=== PATIENT | female | born 1960 | race Caucasian/White ===

== ENCOUNTER 2017-01-24 21:46 | Inpatient (IN) ==
[2017-01-24] MEDS ORDERED: 0.9 % Sodium Chloride 1,000 ML IVC ONE (22:20)
[2017-01-24 22:53] LABS: Basophils # 0.1 K/mcL (0.0-0.2); Basophils % 1.2 %; Eosinophils # 0.6 K/mcL (0.0-0.6); Eosinophils % 9.4 %; Hematocrit 39.5 % (35.3-44.9); Hemoglobin 12.6 g/dL (11.5-15.4); Immature Granulocytes % 0.2 % (0-4); Lymphocytes # 1.2 K/mcL (0.6-4.6); Lymphocytes % 19.8 %; Mean Corpuscular HGB Conc 31.9 g/dL (31.6-35.5); Mean Corpuscular Hemoglobin 26.8 pg (28.0-33.3); Mean Platelet Volume 9.7 fL (9.4-12.4); Monocytes # 0.7 K/mcL (0.0-1.3); Monocytes % 11.2 %; Neutrophils # 3.5 K/mcL (1.6-8.9); Platelet Count 321 K/mcL (140-400); Red Cell Distribution Width 12.9 % (11.5-14.5); Segmented Neutrophils % 58.2 %
[2017-01-24 22:58] LABS: INR 1.1
[2017-01-24 23:05] LABS: BUN/Creatinine Ratio 8 (6-26); Blood Urea Nitrogen 7 mg/dL (7-20); Calcium 8.8 mg/dL (8.6-10.8); Carbon Dioxide 18 mEq/L (19-29); Chloride 107 mEq/L (98-109); Glucose 108 mg/dL (70-99); Magnesium 2.1 mg/dL (1.6-2.6); Osmolality,Calculated 279 (280-300); Phosphorous 3.5 mg/dL (2.3-4.7); Potassium 3.3 mEq/L (3.5-4.5); Sodium 135 mEq/L (136-145); eGFR For African Americans > 60 (> 60); eGFR For Non-African Americans > 60 (> 60)
--- NOTE | 2017-01-24 23:09 | Emergency Department Note ---
START Narrative - START START: I examined this patient and my medical decision-making was reviewed with the Resident Physician. I agree with the documented findings, disposition and treatment plan as described except to the extent set forth below. 56 female presents emergency room for weakness. Patient states her lower legs gave out on her tonight. She feels extremely weak. Unable to ambulate. She also had a tremor. She denies any new numbness in her face or leg. No speech problems. No fevers or chills. No recent medication. No nausea vomiting diarrhea constipation. We will workup for weakness with a CT of the brain and screening lab work. Patient on my exam was able to lift both legs off the bed. She does have a resting tremor and then one that is worse with activity.
[2017-01-24 23:42] LABS: Bilirubin,Urine Negative (Negative); Blood,Urine Negative (Negative); Clarity,Urine Clear (Clear); Color,Urine Yellow (Yellow); Glucose,Urine (UA) Normal (Normal); Ketones,Urine Negative (Negative); Leukocyte Esterase,Urine Moderate (Negative); Nitrite,Urine Negative (Negative); PH,Urine 6.5 pH Units (5.0-8.0); Protein,Urine Negative (Neg-Trace); Specific Gravity,Urine 1.012 (1.010-1.025); Urobilinogen,Urine Normal (Normal)
[2017-01-24 23:48] LABS: Thyroid Stimulating Hormone 0.009 mcIU/mL (0.350-4.840)
[2017-01-24 23:52] LABS: Bacteria,Urine Few per hpf (None-Few); RBC,Urine 0-3 per hpf (0-3); Squamous Epithelial Cell,Urine Few per lpf (None-Few); WBC,Urine 0-3 per hpf (0-3)
--- NOTE | 2017-01-25 00:16 | Emergency Department Note ---
Disposition Clinical Impression: Hyperthyroidism, Weakness, Tremor Disposition: Admitted As Inpatient Condition: Good General Adult HPI - General Chief complaint: ED Weakness Stated complaint: BLE weakness Time Seen by Provider: 01/24/17 21:50 Source: EMS Mode of arrival: ambulatory Limitations: no limitations Nursing Notes Reviewed: Yes Vital Signs Reviewed: Yes - History of Present Illness HPI Narrative: Patient presents for evaluation of bilateral lower extremity weakness. Patient states she tried to get up off the couch and her legs gave out. Patient tried to get up and also had leg weakness that kept her from being unable to get up. The second time the patient did hit her head causing a small hematoma to the right frontal area. Patient arrives by EMS. Patient has decreased strength in the lower extremities. Patient has difficulty with cerebellar testing. Patient has a tremor to both upper and lower extremities. Patient is tachycardic. Patient does take thyroid medication. Patient has no history of liver disease. No history of cancer. Patient has not had any recent infectious type symptoms including cough or urinary symptoms. Patient will undergo metabolic evaluation as well as infectious workup. Review of systems; positive for hallucinations of the last 2 weeks. Visual nature. Pain Scale: 0 - Related Data Home Medications Medication Instructions Recorded Confirmed ALPRAZolam [Xanax 1 MG Tablet] 2 mg PO TID 03/19/15 10/10/15 Duloxetine HCl [Cymbalta] 60 mg PO BID 03/19/15 10/10/15 Gabapentin [Neurontin] 600 mg PO TID 03/19/15 10/10/15 Liothyronine Sodium [Cytomel] 25 mg PO DAILY 03/19/15 10/10/15 Topiramate [Trokendi Xr] 100 mg PO BID 03/19/15 10/10/15 BuPROPion SR (12 HR) [Wellbutrin 150 mg PO TID 09/29/15 10/10/15 SR] lamoTRIgine [Lamictal] 200 mg PO QID 09/29/15 10/10/15 Penicillin VK [Pencillin VK] 500 mg PO QID 10/10/15 10/10/15 Previous Rx's Medication Instructions Recorded Aspirin Enteric Coated [Aspirin EC] 325 mg PO DAILY #30 tablet. 12/16/16 Allergies Allergy/AdvReac Type Severity Reaction Status Date / Time No Known Allergies Allergy Verified 01/24/17 21:47 Review of Systems: CONSTITUTIONAL: No weight loss, fever, chills, weakness or fatigue. HEENT: Eyes: No visual changes. Ears, Nose, Throat: No hearing loss, difficulty talking or unable to swallow. SKIN: No rash or itching. CARDIOVASCULAR: No chest pain, chest pressure or chest discomfort. No palpitations or edema. RESPIRATORY: No shortness of breath, cough or sputum. GASTROINTESTINAL: No anorexia, nausea, vomiting or diarrhea. No abdominal pain or blood. GENITOURINARY: No burning on urination or hematuria. NEUROLOGICAL: tremor; haullucination; No headache, dizziness, syncope, paralysis , ataxia, numbness or tingling in the extremities. No change in bowel or bladder control. MUSCULOSKELETAL: LE weakness. No muscle pain, back pain, joint pain or stiffness. Past Medical History - Past Medical History Medical history: Reports: cancer, migraine, thyroid disease, TIA Surgical history: Reports: appendectomy Psychiatric history: Reports: anxiety, bipolar, depression, panic disorder [employer] history: Reports: cervical cancer, bilateral tubal ligation - Social History Smoking Status: Former smoker Smokeless Tobacco Status: No Alcohol use: Reports: none Drug use: Reports: none Physical Exam General appearance: NAD, conversant Eyes: anicteric sclerae, moist conjunctivae; anisocoria but reactive b/l to light. HENT: Atraumatic; oropharynx clear with moist mucous membranes and no mucosal ulcerations Neck: Normal inspection; Trachea midline; FROM, supple Lungs: CTA, with normal respiratory effort and no intercostal retractions CV: RRR, no MRGs Abdomen: Soft, non-tender; no rebound or gaurding Extremities: No peripheral edema or extremity lymphadenopathy; DP pulse +1 bilaterally Skin: Normal temperature; no rash, ulcers or lesions Psych: Appropriate mood and affect Neuro: alert and oriented to person, place and time; 4/5 strength to lower extremities; sensation intact; tremor of upper and lower extremities. - General General appearance: alert Course - Reevaluation(s) Reevaluation #1: Patient has significantly low TSH. Concern for hyperthyroidism. Patient is not in thyroid storm. Will admit the patient to the hospital for further workup and evaluation. - Consultations Consultation #1: Dr. Cortes accepts for further evaluation and monitoring. Vital Signs Temperature 98.2 F 01/24/17 21:48 Pulse Rate 109 01/24/17 21:48 Respiratory Rate 16 01/24/17 21:48 Blood Pressure 138/101 01/24/17 21:48 O2 Sat by Pulse Oximetry 99 01/24/17 21:48 Temperature 98.2 F 01/24/17 21:48 Pulse Rate 92 01/24/17 23:31 Respiratory Rate 18 01/24/17 23:31 Blood Pressure 120/77 01/24/17 23:31 O2 Sat by Pulse Oximetry 97 01/24/17 23:31 Oxygen Delivery Oxygen Delivery Room Air Medical Decision Making - MDM Narrative Medical decision making narrative: Patient presented tachycardic with generalized tremors muscle weakness and hallucinations. Patient underwent a workup for metabolic and infectious etiologies. Patient's workup shows a low TSH. Patient will be admitted for further workup and evaluation. Vitals are now stable. The patient is not in thyroid storm. No other intervention in the emergency department besides fluids. - Lab Data Result diagrams: 01/24/17 22:46 01/24/17 22:46 Lab Results 01/24/17 01/24/17 01/24/17 Range/Units 22:00 22:46 22:46 WBC 6.1 (4.3-11.1) K/mcL RBC 4.70 (3.82-4.97) M/mcL Hgb 12.6 (11.5-15.4) g/dL Hct 39.5 (35.3-44.9) % MCV 84.0 (83.0-100.0) fL MCH 26.8 L (28.0-33.3) pg MCHC 31.9 (31.6-35.5) g/dL RDW 12.9 (11.5-14.5) % Plt Count 321 (140-400) K/mcL MPV 9.7 (9.4-12.4) fL Immature Gran % 0.2 (0-4) % Seg Neutrophils % 58.2 % Lymphocytes % 19.8 % Monocytes % 11.2 % Eosinophils % 9.4 % Basophils % 1.2 % Neutrophils # 3.5 (1.6-8.9) K/mcL Lymphocytes # 1.2 (0.6-4.6) K/mcL Monocytes # 0.7 (0.0-1.3) K/mcL Eosinophils # 0.6 (0.0-0.6) K/mcL Basophils # 0.1 (0.0-0.2) K/mcL PT 12.0 (9.4-12.1) Seconds INR 1.1 Sodium (136-145) mEq/L Potassium (3.5-4.5) mEq/L Chloride (98-109) mEq/L Carbon Dioxide (19-29) mEq/L BUN (7-20) mg/dL Creatinine (0.57-1.11) mg/dL Est GFR ( Amer) (> 60) Est GFR (Non-Af Amer) (> 60) BUN/Creatinine Ratio (6-26) Glucose (70-99) mg/dL POC Glucose 97 H (58-89) Calculated Osmolality (280-300) Calcium (8.6-10.8) mg/dL Phosphorus (2.3-4.7) mg/dL Magnesium (1.6-2.6) mg/dL Ammonia (18-72) mcmol/L Troponin I (0-0.03) ng/mL TSH (0.350-4.840) mcIU/mL Urine Color (Yellow) Urine Clarity (Clear) Urine pH (5.0-8.0) pH Units Ur Specific Holden (1.010-1.025) Urine Protein (Neg-Trace) mg/dL Urine Glucose (UA) (Normal) mg/dL Urine Ketones (Negative) mg/dL Urine Blood (Negative) Urine Nitrite (Negative) Urine Bilirubin (Negative) Urine Urobilinogen (Normal) mg/dL Ur Leukocyte Esterase (Negative) Urine Microscopic RBC (0-3) per hpf Urine Microscopic WBC (0-3) per hpf Ur Squamous Epith Cells (None-Few) per lpf Urine Bacteria (None-Few) per hpf Ur Culture Indicated? (NO) 01/24/17 01/24/17 01/24/17 Range/Units 22:46 22:46 22:46 WBC (4.3-11.1) K/mcL RBC (3.82-4.97) M/mcL Hgb (11.5-15.4) g/dL Hct (35.3-44.9) % MCV (83.0-100.0) fL MCH (28.0-33.3) pg MCHC (31.6-35.5) g/dL RDW (11.5-14.5) % Plt Count (140-400) K/mcL MPV (9.4-12.4) fL Immature Gran % (0-4) % Seg Neutrophils % % Lymphocytes % % Monocytes % % Eosinophils % % Basophils % % Neutrophils # (1.6-8.9) K/mcL Lymphocytes # (0.6-4.6) K/mcL Monocytes # (0.0-1.3) K/mcL Eosinophils # (0.0-0.6) K/mcL Basophils # (0.0-0.2) K/mcL PT (9.4-12.1) Seconds INR Sodium 135 L (136-145) mEq/L Potassium 3.3 L (3.5-4.5) mEq/L Chloride 107 (98-109) mEq/L Carbon Dioxide 18 L (19-29) mEq/L BUN 7 (7-20) mg/dL Creatinine 0.88 (0.57-1.11) mg/dL Est GFR ( Amer) > 60 (> 60) Est GFR (Non-Af Amer) > 60 (> 60) BUN/Creatinine Ratio 8 (6-26) Glucose 108 H (70-99) mg/dL POC Glucose (58-89) Calculated Osmolality 279 L (280-300) Calcium 8.8 (8.6-10.8) mg/dL Phosphorus 3.5 (2.3-4.7) mg/dL Magnesium 2.1 (1.6-2.6) mg/dL Ammonia 31 (18-72) mcmol/L Troponin I 0.00 (0-0.03) ng/mL TSH 0.009 L (0.350-4.840) mcIU/mL Urine Color (Yellow) Urine Clarity (Clear) Urine pH (5.0-8.0) pH Units Ur Specific Holden (1.010-1.025) Urine Protein (Neg-Trace) mg/dL Urine Glucose (UA) (Normal) mg/dL Urine Ketones (Negative) mg/dL Urine Blood (Negative) Urine Nitrite (Negative) Urine Bilirubin (Negative) Urine Urobilinogen (Normal) mg/dL Ur Leukocyte Esterase (Negative) Urine Microscopic RBC (0-3) per hpf Urine Microscopic WBC (0-3) per hpf Ur Squamous Epith Cells (None-Few) per lpf Urine Bacteria (None-Few) per hpf Ur Culture Indicated? (NO) 01/24/17 Range/Units 23:35 WBC (4.3-11.1) K/mcL RBC (3.82-4.97) M/mcL Hgb (11.5-15.4) g/dL Hct (35.3-44.9) % MCV (83.0-100.0) fL MCH (28.0-33.3) pg MCHC (31.6-35.5) g/dL RDW (11.5-14.5) % Plt Count (140-400) K/mcL MPV (9.4-12.4) fL Immature Gran % (0-4) % Seg Neutrophils % % Lymphocytes % % Monocytes % % Eosinophils % % Basophils % % Neutrophils # (1.6-8.9) K/mcL Lymphocytes # (0.6-4.6) K/mcL Monocytes # (0.0-1.3) K/mcL Eosinophils # (0.0-0.6) K/mcL Basophils # (0.0-0.2) K/mcL PT (9.4-12.1) Seconds INR Sodium (136-145) mEq/L Potassium (3.5-4.5) mEq/L Chloride (98-109) mEq/L Carbon Dioxide (19-29) mEq/L BUN (7-20) mg/dL Creatinine (0.57-1.11) mg/dL Est GFR ( Amer) (> 60) Est GFR (Non-Af Amer) (> 60) BUN/Creatinine Ratio (6-26) Glucose (70-99) mg/dL POC Glucose (58-89) Calculated Osmolality (280-300) Calcium (8.6-10.8) mg/dL Phosphorus (2.3-4.7) mg/dL Magnesium (1.6-2.6) mg/dL Ammonia (18-72) mcmol/L Troponin I (0-0.03) ng/mL TSH (0.350-4.840) mcIU/mL Urine Color Yellow (Yellow) Urine Clarity Clear (Clear) Urine pH 6.5 (5.0-8.0) pH Units Ur Specific Holden 1.012 (1.010-1.025) Urine Protein Negative (Neg-Trace) mg/dL Urine Glucose (UA) Normal (Normal) mg/dL Urine Ketones Negative (Negative) mg/dL Urine Blood Negative (Negative) Urine Nitrite Negative (Negative) Urine Bilirubin Negative (Negative) Urine Urobilinogen Normal (Normal) mg/dL Ur Leukocyte Esterase Moderate H (Negative) Urine Microscopic RBC 0-3 (0-3) per hpf Urine Microscopic WBC 0-3 (0-3) per hpf Ur Squamous Epith Cells Few (None-Few) per lpf Urine Bacteria Few (None-Few) per hpf Ur Culture Indicated? YES A (NO)
[2017-01-25] MEDS ORDERED: Naloxone 0.4 MG/ML INJ IVP PRN (00:47)
--- NOTE | 2017-01-25 00:55 | Internal Med History&Physical ---
Date of Encounter: 01/25/17 Time of Encounter: 00:52 Assessment and Plan (1) Weakness of both legs Current visit: Yes Status: Acute head ct wnl check MRI brain w/wo contrast PT/OT (2) Abnormal thyroid blood test Current visit: Yes Status: Acute pending TFT, may need to hold cytomel (3) Migraine Current visit: Yes Status: Acute hx of migraine. Doubt presentation related to complicated migraine Qualifiers: Status migrainosus presence: without status migrainosus Qualified Code(s): G43.909 - Migraine, unspecified, not intractable, without status migrainosus Internal Medicine - H&P: HPI Chief complaint: b/l LE weakness History of present illness: Ms. Flowres is a 56 year old female who presents with acute b/l LE weakness. She has a hx of hypothyroid on cytomel. She lives with dtr and grandkids at home. Yesterday, she felt the early beginnings of onset of proximal LE weakness when she was lifting her grandkid. Today, she had progressive weakness most notable at 8 pm this evening - she attempted to stand up from the couch when she felt both of her legs giving out, leading to fall to the floor and mild head trauma. She denies any sensory deficits or back pain or prior trauma. Review noted 2 weeks hx of intermittent hallucinations. Chart review noted probably hx of pseudoseizures. Patient also report hx of migraine EKG reviewed by self with rate 102, sinus tachycardia CT/CT head/brain wo con IMPRESSION: No acute intracranial abnormality. XR/XR chest 1V portable IMPRESSION: Negative portable chest. Past Med Surg Social Fam HX - Past Medical History Medical history: cancer, migraine, thyroid disease, TIA Psychiatric history: anxiety, bipolar, depression, panic disorder - Past Surgical History Surgical History: appendectomy - Social History Smoking Status: Former smoker Smokeless Tobacco Status: No Alcohol use: none Drug use: none - Family History Mother Living Status: Still Living Hx Family Cardiac Disorders: No Hx Family Respiratory Disorders: No Hx Family Cancer: Yes (female cancer) Hx Family GI Disorders: No Hx Family Endocrine Disorder: No Hx Family Neuromuscular Disorders: No Hx Family Neurologic Disorders: No Hx Family HEENT Disorders: No Hx Family Autoimmune Disorders: No Father Living Status: Hx Family Cardiac Disorders: Yes (Enlarged heart) Hx Family Respiratory Disorders: Yes (COPD) Hx Family Cancer: No Hx Family GI Disorders: No Hx Family Endocrine Disorder: No Hx Family Neuromuscular Disorders: No Hx Family Neurologic Disorders: No Hx Family HEENT Disorders: No Hx Family Autoimmune Disorders: No Internal Medicine - H&P: Meds ALPRAZolam [Xanax 1 MG Tablet] 2 mg PO TID 03/19/15 [History] Duloxetine HCl [Cymbalta] 60 mg PO BID 03/19/15 [History] Gabapentin [Neurontin] 600 mg PO TID 03/19/15 [History] Liothyronine Sodium [Cytomel] 25 mg PO DAILY 03/19/15 [History] Topiramate [Trokendi Xr] 100 mg PO BID 03/19/15 [History] BuPROPion SR (12 HR) [Wellbutrin SR] 150 mg PO TID 09/29/15 [History] lamoTRIgine [Lamictal] 200 mg PO QID 09/29/15 [History] Penicillin VK [Pencillin VK] 500 mg PO QID 10/10/15 [History] Aspirin Enteric Coated [Aspirin EC] 325 mg PO DAILY #30 tablet. 12/16/16 [Rx] 3 Allergy/AdvReac Type Severity Reaction Status Date / Time No Known Allergies Allergy Verified 01/24/17 21:47 All Systems PM: A 10-system review of systems was performed and is negative for pertinent findings except as documented above in the HPI. Review of systems: ROS 14 point review of systems reviewed as best as possible given presentation. Pertinent positive or negative as per HPI or otherwise reviewed as negative - Constitutional Vitals: Temp Pulse Resp BP Pulse Ox 98.2 F 92 18 120/77 97 01/24/17 21:48 01/24/17 23:31 01/24/17 23:31 01/24/17 23:31 01/24/17 23:31 Exam: General - AAO x 3 Psych - Appropriate affect/speech. No agitation Eyes - GATO. Eye lids intact. No scleral icterus Neuro - peripheral LE power 4/5 on right, 4-/5 on left. No UE deficits or overt CN deficits. Some poor coordination Heart - Sinus. RRR. S1 and S2 present. No added HS/murmurs appreciated. No elevated JVD appreciated. Lung - Adequate air entry b/l, No crackles/wheezes appreciated GI - Soft, non-tender. No hepatosplenomegaly/ascites. BS+ - No CVA/suprapubic tenderness or palpable bladder distension Internal Med - H&P Results - Labs CBC & Chem 7: 01/24/17 22:46 01/24/17 22:46
[2017-01-25 01:20] LABS: Triiodothyronine (T3) Free 5.45 pg/mL (1.71-3.71); Triiodothyronine (T3) Total 3.09 ng/mL (0.58-1.59)
[2017-01-25] MEDS: 0.9 % Sodium Chloride w KCl 20 MEQ/1,000 ML MLS IVC SCH ×2 (03:20→15:44)
[2017-01-25] MEDS ORDERED: ALPRAZolam 1 MG TABLET PO ONE (03:34)
[2017-01-25 05:58] LABS: Alanine Aminotransferase 11 Units/L (0-55); Albumin 2.7 g/dL (3.5-5.0); Albumin/Globulin Ratio 0.8 (1.1-2.2); Alkaline Phosphatase 40 Units/L (38-126); Aspartate Amino Transferase 16 Units/L (5-34); BUN/Creatinine Ratio 8 (6-26); Bilirubin,Total 0.2 mg/dL (0.2-1.2); Blood Urea Nitrogen 7 mg/dL (7-20); Calcium 8.1 mg/dL (8.6-10.8); Carbon Dioxide 18 mEq/L (19-29); Chloride 112 mEq/L (98-109); Globulin 3.3 g/dL (2.4-3.5); Glucose 106 mg/dL (70-99); Osmolality,Calculated 286 (280-300); Potassium 3.2 mEq/L (3.5-4.5); Sodium 139 mEq/L (136-145); eGFR For African Americans > 60 (> 60); eGFR For Non-African Americans > 60 (> 60)
[2017-01-25] MEDS ORDERED: lamoTRIgine 100 MG TABLET PO SCH (09:00)
[2017-01-25] MEDS: BuPROPion SR (12 HR) 150 MG TABLET PO SCH ×2 (09:32→21:00)
[2017-01-25] MEDS: Topiramate 100 MG TABLET PO SCH ×2 (09:32→21:00)
[2017-01-25] MEDS: Gabapentin 300 MG CAPSULE PO SCH ×3 (09:32→21:00)
[2017-01-25] MEDS: ALPRAZolam 1 MG TABLET PO SCH ×3 (09:32→21:00)
[2017-01-25] MEDS: Aspirin Enteric Coated 325 MG Tablet PO SCH (09:36)
--- NOTE | 2017-01-25 16:37 | Internal Med Progress Note ---
Date of Encounter: 01/25/17 Time of Encounter: 16:35 - Assessment and plan (1) Weakness of both legs Current Visit: Yes Status: Acute Assessment and plan: Sudden onset Unclear etiology MRI of Brain - no acute infractions PT / OT eval - recommended in pt rehab cont frequent neuro checks check B12, Folic acid levels Neuro consulted (2) Abnormal thyroid blood test Current Visit: Yes Status: Acute Assessment and plan: Reviewed thyroid functions tests.. low TSH, Low T4, high free T3 and total T3 concern for central hypothyroidism and excessive medication with Cytomel so cut back on Cytomel dose also will check with PCP about her thyroid status ordered ACTH cortisol stimulation test check FSH, LH to confirm central pituitary / hypothalamus problem (3) Anxiety Current Visit: No Status: Acute (4) Migraine Current Visit: Yes Status: Acute Assessment and plan: resumed home meds Qualifiers: Status migrainosus presence: without status migrainosus Qualified Code(s): G43.909 - Migraine, unspecified, not intractable, without status migrainosus - Subjective Interval history: Ms. Flowers is a 56 year old female hx of hypothyroid on cytomel, fibromyalgia, bipolar, migraine who presented to ER with acute b/l LE weakness. 2 days ago, she felt the early beginnings of onset of proximal LE weakness when she was lifting her grand kid. y/d, she had progressive weakness most notable at 8 pm - she attempted to stand up from the couch when she felt both of her legs giving out, leading to fall to the floor and mild head trauma. She denies any sensory deficits or back pain or prior trauma. She also denied any fecal or urinary incontinence - Constitutional Vitals: Temp Pulse Resp BP Pulse Ox 97.5 F L 87 17 95/64 97 01/25/17 15:34 01/25/17 15:34 01/25/17 15:34 01/25/17 15:34 01/25/17 15:34 General appearance: Present: A&O X 3, pleasant - Head Head exam: Present: atraumatic, normal inspection - Neck Neck exam general surgery: Present: normal inspection, supple. Absent: thyromegaly - Respiratory Respiratory exam: Present: CTAB. Absent: accessory muscle use, rales, rhonchi, wheezes - Cardiovascular Cardiovascular exam: Present: RRR, +S1, +S2. Absent: diastolic murmur, gallop, rubs, systolic murmur - GI/Abdominal GI/Abdominal exam: Present: normal bowel sounds, soft. Absent: rebound, rigid, tenderness - Extremities Exam Extremities exam: Absent: calf tenderness, pedal edema, tenderness - Back Exam Back exam: Absent: CVA tenderness (L), CVA tenderness (R) - Neurological Exam Neurological exam: Present: alert, oriented X3, strengths equal and symetr throughout (however strength 4/5 in both lower extremeties). Absent: pronater drift, facial droop, speech deficit - Psychiatric Psychiatric exam: Present: normal affect, normal mood - Skin Skin exam: Absent: rash Internal Medicine: Result - Labs CBC & Chem 7: 01/24/17 22:46 01/25/17 05:16 Labs: BMP 01/25/17 05:16 Sodium 139 Potassium 3.2 L Chloride 112 H Carbon Dioxide 18 L BUN 7 Creatinine 0.86 Glucose 106 H Calcium 8.1 L Liver Function 01/25/17 Range/Units 05:16 Total Bilirubin 0.2 (0.2-1.2) mg/dL AST 16 (5-34) Units/L ALT 11 (0-55) Units/L Alkaline Phosphatase 40 (38-126) Units/L Albumin 2.7 L (3.5-5.0) g/dL - ABG Interpretation ABG results: PT/INR, D-dimer PT 12.0 Seconds (9.4-12.1) 01/24/17 22:46 - Impressions Impressions Head MRI 01/25/17 00:50 IMPRESSION: 1. Motion degraded examination. 2. No evidence of acute intracranial abnormality. Specifically, no acute infarction. 3. Foci of periventricular and subcortical white matter signal abnormality are nonspecific, but compatible with mild chronic microvascular ischemic changes. D/ / Tamika Augustine MD / Tamika Augustine MD Interpreting Provider: Tamika Augustine MD Consult Discharge Plan - Plan
[2017-01-25 17:55] LABS: Follicle Stimulating Hormone 84.78 mIU/mL; Luteinizing Hormone 37.1 mIU/mL
[2017-01-26] MEDS ORDERED: Cosyntropin 250 MCG/2 ML VIAL IVP ONE (06:00)
[2017-01-26] MEDS: BuPROPion SR (12 HR) 150 MG TABLET PO SCH ×2 (08:42→20:08)
[2017-01-26] MEDS: ALPRAZolam 1 MG TABLET PO SCH ×3 (08:42→20:07)
[2017-01-26] MEDS: Aspirin Enteric Coated 325 MG Tablet PO SCH (08:42)
[2017-01-26] MEDS: Topiramate 100 MG TABLET PO SCH ×2 (08:42→20:07)
[2017-01-26] MEDS: Gabapentin 300 MG CAPSULE PO SCH ×3 (08:43→20:08)
[2017-01-26] MEDS ORDERED: Cosyntropin 250 MCG/2 ML VIAL IVP PRN (11:05)
--- NOTE | 2017-01-26 11:48 | Neurology - Consult Note ---
Date of Encounter: 01/26/17 Time of Encounter: 11:46 Assessment and Plan (1) Weakness of both legs Current Visit: Yes Status: Acute Unclear etiology. Rapid improvement without specific treatment. But still has residual weakness, although now the examination of leg muscle strength somewhat unreliable, not sure she is using full efforts ( when lifting one leg up, the other does not push down, as would be expected when using full force ). If neurological conditions are to blame, lesion has to be in the spinal cord. Patient has preserved DTRs and no sensory deficits therefore Guillain barre syndrome is not considered. Does have muscle pain with weakness so will check muscle enzymes, including CK, LDH. Will recommend obtaining MRI of thoracic spine without contrast. History of Present Illness Chief complaint: leg weakness HPI: Ms. Flowers is a 56 year old female 56 year old woman with thyroid disease, migraines who developed acute onset of leg weakness. This occurred abut two weeks ago when she woke up in the morning she felt her thighs were sore. Then when she tried to get up she fell trying to get up. She has no arm weakness. She has no sensory deficits. No bladder and bowel dysfunction, no back or neck pain. No speech difficulty, no mental status changes. MRI of brain showed no intracranial abnormality. Was found to have thyroid issues. Patient states that she has been feeling better, about 50-60% improvement since admission. She is able to walk now with some assistance. Past Med Surg Social Fam HX - Past Medical History Medical history: cancer, migraine, thyroid disease, TIA Psychiatric history: anxiety, bipolar, depression, panic disorder - Past Surgical History Surgical History: appendectomy - Social History Smoking Status: Former smoker Smokeless Tobacco Status: No Alcohol use: none Drug use: none - Family History Mother Living Status: Still Living Hx Family Cardiac Disorders: No Hx Family Respiratory Disorders: No Hx Family Cancer: Yes (Uterine Cancer) Hx Family GI Disorders: No Hx Family Endocrine Disorder: No Hx Family Neuromuscular Disorders: No Hx Family Neurologic Disorders: No Hx Family HEENT Disorders: No Hx Family Autoimmune Disorders: No Father Living Status: Hx Family Cardiac Disorders: Yes (Enlarged heart) Hx Family Respiratory Disorders: Yes (COPD) Hx Family Cancer: No Hx Family GI Disorders: No Hx Family Endocrine Disorder: No Hx Family Neuromuscular Disorders: No Hx Family Neurologic Disorders: No Hx Family HEENT Disorders: No Hx Family Autoimmune Disorders: No Medications and Allergies ALPRAZolam [Xanax 1 MG Tablet] 2 mg PO TID PRN 03/19/15 [History] Duloxetine HCl [Cymbalta] 60 mg PO BID 03/19/15 [History] Gabapentin [Neurontin] 600 mg PO QID 03/19/15 [History] Liothyronine Sodium [Cytomel] 50 mcg PO DAILY 03/19/15 [History] Topiramate [Trokendi Xr] 200 mg PO TID 03/19/15 [History] BuPROPion SR (12 HR) [Wellbutrin SR] 200 mg PO BID 09/29/15 [History] lamoTRIgine [Lamictal] 200 mg PO BID 09/29/15 [History] Aspirin [Lo-Dose Aspirin EC] 81 mg PO DAILY 01/25/17 [History] 3 Allergy/AdvReac Type Severity Reaction Status Date / Time No Known Allergies Allergy Verified 01/24/17 21:47 All Systems: A 10-system review of systems was performed and is negative for pertinent findings except as documented above in the HPI. Physical Examination - Vital Signs Vital Signs: Initial Vital Signs Temp Pulse Resp BP Pulse Ox 98.2 F 109 16 138/101 99 01/24/17 21:48 01/24/17 21:48 01/24/17 21:48 01/24/17 21:48 01/24/17 21:48 - Constitutional General appearance: comfortable - Neurologic Sensorimotor examination: intact Detailed motor examination: other (When lifting left leg up, the right leg did not push down. Vise Versa) Motor examination - right side: 4/5: hip flexors, tibialis Anterior, quadriceps , toe extension (EHL), plantarflexion, 5/5: deltoids, biceps, triceps, wrist flexion, wrist extension, spring forger Motor examination - left side: 4/5: hip flexors, quadriceps, tibialis Anterior, toe extension (EHL), plantarflexion, 5/5: deltoids, biceps, triceps, wrist flexion, wrist extension, spring forger Detailed sensory examination: intact Reflexes: Biceps: 3+, Triceps: 3+, Brachioradialis: 3+, Patella: 3+, Achilles: 3 + Mental Status Examination: awake, alert, oriented to person, oriented to place, oriented to time, follows commands appropriately, answers questions appropriately, no agnosia, no aphasia, no aproxia Cranial nerve examination: PERRL, EOMI, visual cabrera intact, corneal reflexes brisk symmetrically, sensory to face intact, mastication intact, no facial asymmetry is present, no dysarthria, hearing is intact symmetrically, soft palate elevates bilaterally upon phonation, gag reflex intact, flexes SCM and trapezius muscles symmetrically with full power, tongue protrudes midline, no atrophy or facial fasiculations present Results - Laboratory Findings CBC and BMP: 01/24/17 22:46 01/25/17 05:16 Abnormal lab findings: Abnormal lab results MCH 26.8 pg (28.0-33.3) L 01/24/17 22:46 Potassium 3.2 mEq/L (3.5-4.5) L 01/25/17 05:16 Chloride 112 mEq/L (98-109) H 01/25/17 05:16 Carbon Dioxide 18 mEq/L (19-29) L 01/25/17 05:16 Glucose 106 mg/dL (70-99) H 01/25/17 05:16 POC Glucose 97 (58-89) H 01/24/17 22:00 Calcium 8.1 mg/dL (8.6-10.8) L 01/25/17 05:16 Albumin 2.7 g/dL (3.5-5.0) L 01/25/17 05:16 Albumin/Globulin Ratio 0.8 (1.1-2.2) L 01/25/17 05:16 Folate 6.3 ng/mL (7.0-31.4) L 01/25/17 16:46 TSH 0.009 mcIU/mL (0.350-4.840) L 01/24/17 22:46 Free T4 < 0.40 ng/dl (0.70-1.48) L 01/24/17 22:46 Thyroxine (T4) < 0.91 mcg/dL (4.87-11.72) L 01/24/17 22:46 Free T3 5.45 pg/mL (1.71-3.71) H 01/24/17 22:46 Total T3 3.09 ng/mL (0.58-1.59) H 01/24/17 22:46 Ur Leukocyte Esterase Moderate (Negative) H 01/24/17 23:35 Ur Culture Indicated? YES (NO) A 01/24/17 23:35 Consult Discharge Plan - Plan Referrals: Mehul Darling MD [Primary Care Provider] -
[2017-01-26 12:32] LABS: Creatine Kinase 40 Units/L (29-168); Lactate Dehydrogenase 157 Units/L (159-327)
--- NOTE | 2017-01-26 13:43 | Internal Med Progress Note ---
Date of Encounter: 01/26/17 Time of Encounter: 13:37 - Assessment and plan (1) Weakness of both legs Current Visit: Yes Status: Acute Assessment and plan: Sudden onset Unclear etiology MRI of Brain - no acute infractions PT / OT eval - recommended in pt rehab cont frequent neuro checks Reviewed her X ray of Lumbar spine - no acute changes Reviewed B12, Folic acid levels-- Slightly lower folic acid levels will start her on floci acid supplements Neuro on board.. recommend MRI of Spine (2) Abnormal thyroid blood test Current Visit: Yes Status: Acute Assessment and plan: Reviewed thyroid functions tests.. 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 Does not look like any central pituitary / hypothalamus problem (3) Anxiety Current Visit: No Status: Acute (4) Migraine Current Visit: Yes Status: Acute Assessment and plan: resumed home meds Qualifiers: Status migrainosus presence: without status migrainosus Qualified Code(s): G43.909 - Migraine, unspecified, not intractable, without status migrainosus - Subjective Interval history: Ms. Flowers is a 56 year old female hx of hypothyroid on cytomel, fibromyalgia, bipolar, migraine who presented to ER with acute b/l LE weakness. 2 days ago, she felt the early beginnings of onset of proximal LE weakness when she was lifting her grand kid. y/d, she had progressive weakness most notable at 8 pm - she attempted to stand up from the couch when she felt both of her legs giving out, leading to fall to the floor and mild head trauma. She denies any sensory deficits or back pain or prior trauma. She also denied any fecal or urinary incontinence. She stated she is feeling little better today. Still has weakness in both legs. - Constitutional Vitals: Temp Pulse Resp BP Pulse Ox 97.6 F 88 17 108/73 96 01/26/17 11:33 01/26/17 11:33 01/26/17 11:33 01/26/17 11:33 01/26/17 11:33 General appearance: Present: A&O X 3, pleasant - Head Head exam: Present: atraumatic, normal inspection - Neck Neck exam general surgery: Present: supple - Respiratory Respiratory exam: Present: CTAB. Absent: accessory muscle use, rales, rhonchi, wheezes - Cardiovascular Cardiovascular exam: Present: RRR, +S1, +S2. Absent: diastolic murmur, gallop, rubs, systolic murmur - GI/Abdominal GI/Abdominal exam: Present: normal bowel sounds, soft. Absent: rebound, rigid, tenderness - Extremities Exam Extremities exam: Absent: calf tenderness, pedal edema, tenderness - Neurological Exam Neurological exam: Present: alert, oriented X3, reflexes normal, strengths equal and symetr throughout (however strength 3-4/5 in both LE.. ). Absent: pronater drift, facial droop, speech deficit - Psychiatric Psychiatric exam: Present: normal affect, normal mood Internal Medicine: Result - Labs CBC & Chem 7: 01/24/17 22:46 01/25/17 05:16 - ABG Interpretation ABG results: PT/INR, D-dimer PT 12.0 Seconds (9.4-12.1) 01/24/17 22:46 - Impressions Impressions Lumbar Spine X-Ray 01/25/17 16:34 IMPRESSION: No significant findings in the lumbar spine. D/ / Km Smith MD / Km Smith MD Interpreting Provider: Km Smith MD Consult Discharge Plan - Plan Referrals: Mehul Darling MD [Primary Care Provider] -
[2017-01-26] MEDS: lamoTRIgine 100 MG TABLET PO SCH ×2 (14:35→20:08)
[2017-01-27] MEDS ORDERED: Acetaminophen 325 MG TABLET PO ONE (02:45)
[2017-01-27] MEDS: BuPROPion SR (12 HR) 150 MG TABLET PO SCH ×2 (08:39→20:09)
[2017-01-27] MEDS: Aspirin Enteric Coated 325 MG Tablet PO SCH (08:39)
[2017-01-27] MEDS: lamoTRIgine 100 MG TABLET PO SCH ×2 (08:39→20:05)
[2017-01-27] MEDS: Topiramate 100 MG TABLET PO SCH ×2 (08:40→20:05)
[2017-01-27] MEDS: Gabapentin 300 MG CAPSULE PO SCH ×3 (08:40→20:06)
[2017-01-27] MEDS: ALPRAZolam 1 MG TABLET PO SCH ×3 (08:40→20:06)
--- NOTE | 2017-01-27 17:41 | Neurology Progress Note ---
Date of Encounter: 01/27/17 Time of Encounter: 17:38 Assessment and Plan (1) Weakness of both legs Current Visit: Yes Status: Acute Etiology unclear and there was an impression of possible somatization involvement. MRI of thoracic spine did show disc bulge at the level of T7-T8 causing effacement of subarachnoid sac and anterior cord flattening. However the posterior subarachnoid space is preserved. Theoretically, since anterior spinal cord was affected, there could be transient motor weakness as a result of anterior spinal cord compression or ischemia secondary to arterial supply compromise. Clinically she is slowly but steady improving. Would recommend ortho consultation as inpatient or outpatient basis. Continue PT/OT. From neurology perspective, no further testing will be recommended. Subjective Principal diagnosis: bilateral leg weakness Interval history: Patient seen and examined. She still has weakness in her legs although she relates that she has been getting better every day. Yesterday it was about 50% improvement today is about about 60-70% improvement. She completed MRI of thoracic spine, which showed T7-T8 disc bulge causing effacement of spinal sac and flattening of anterior spinal cord. no significant signal changes seen.Clinically she has no bowel and bladder dysfunction. No sensory deficits. Objective - Constitutional Vitals: Temp Pulse Resp BP Pulse Ox 97.6 F 92 16 111/72 98 01/27/17 15:17 01/27/17 15:17 01/27/17 15:17 01/27/17 15:17 01/27/17 15:17 - Neurological Exam Sensorimotor examination: Present: intact Motor Examination: Present: other (When lifting left leg up, the right leg did not push down. Vise Versa) Motor examination - left side: 4/5: hip flexors, quadriceps, tibialis Anterior, toe extension (EHL), plantarflexion, 5/5: deltoids, biceps, triceps, wrist flexion, wrist extension, jacquard plate maker Sensation intact: Present: intact Mental Status Examination: Present: awake, alert, oriented to person, oriented to place, oriented to time, follows commands appropriately, answers questions appropriately, no agnosia, no aphasia, no aproxia Cranial nerve examination: Present: PERRL, EOMI, visual cabrera intact, corneal reflexes brisk symmetrically, sensory to face intact, mastication intact, no facial asymmetry is present, no dysarthria, hearing is intact symmetrically, soft palate elevates bilaterally upon phonation, gag reflex intact, flexes SCM and trapezius muscles symmetrically with full power, tongue protrudes midline, no atrophy or facial fasiculations present Results - Laboratory Findings CBC and BMP: 01/24/17 22:46 01/25/17 05:16 Abnormal lab findings: Abnormal lab results MCH 26.8 pg (28.0-33.3) L 01/24/17 22:46 ESR 35 mm/hr (0-15) H 01/26/17 12:07 Potassium 3.2 mEq/L (3.5-4.5) L 01/25/17 05:16 Chloride 112 mEq/L (98-109) H 01/25/17 05:16 Carbon Dioxide 18 mEq/L (19-29) L 01/25/17 05:16 Glucose 106 mg/dL (70-99) H 01/25/17 05:16 POC Glucose 97 (58-89) H 01/24/17 22:00 Calcium 8.1 mg/dL (8.6-10.8) L 01/25/17 05:16 Lactate Dehydrogenase 157 Units/L (159-327) L 01/26/17 12:07 Albumin 2.7 g/dL (3.5-5.0) L 01/25/17 05:16 Albumin/Globulin Ratio 0.8 (1.1-2.2) L 01/25/17 05:16 Folate 6.3 ng/mL (7.0-31.4) L 01/25/17 16:46 TSH 0.009 mcIU/mL (0.350-4.840) L 01/24/17 22:46 Free T4 < 0.40 ng/dl (0.70-1.48) L 01/24/17 22:46 Thyroxine (T4) < 0.91 mcg/dL (4.87-11.72) L 01/24/17 22:46 Free T3 5.45 pg/mL (1.71-3.71) H 01/24/17 22:46 Total T3 3.09 ng/mL (0.58-1.59) H 01/24/17 22:46 Ur Leukocyte Esterase Moderate (Negative) H 01/24/17 23:35 Ur Culture Indicated? YES (NO) A 01/24/17 23:35 Consult Discharge Plan - Plan Referrals: Mehul Darling MD [Primary Care Provider] -
--- NOTE | 2017-01-27 18:11 | Internal Med Progress Note ---
Date of Encounter: 01/27/17 Time of Encounter: 18:09 - Assessment and plan (1) Weakness of both legs Current Visit: Yes Status: Acute Assessment and plan: Sudden onset Unclear etiology MRI of Brain - no acute infractions MRI of thoracic spine did show disc bulge at the level of T7-T8 causing effacement of subarachnoid sac and anterior cord flattening. However the posterior subarachnoid space is preserved not sure this is main reson for her transient b/l le weakness consulted ortho surgery Dr. Mosquera PT / OT preethi - recommended in pt rehab..pt wants to go home with home health services Reviewed her X ray of Lumbar spine - no acute changes Reviewed B12, Folic acid levels-- Slightly lower folic acid levels started her on folic acid supplements (2) Functional paraparesis Current Visit: Yes Status: Acute Assessment and plan: see above (3) Abnormal thyroid blood test Current Visit: Yes Status: Acute Assessment and plan: Reviewed thyroid functions tests.. 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 Does not look like any central pituitary / hypothalamus problem Reviewed her Cortsol levels - ACTH stimulation test results.. seems to be she does have primary adrenal insufficiency.could be chronic.. may get benefit with Network Mgr evaluation. (4) Anxiety Current Visit: No Status: Acute (5) Migraine Current Visit: Yes Status: Acute Assessment and plan: resumed home meds Qualifiers: Status migrainosus presence: without status migrainosus Qualified Code(s): G43.909 - Migraine, unspecified, not intractable, without status migrainosus (6) Adrenal insufficiency Current Visit: Yes Status: Acute Assessment and plan: Reviewed her Cortsol levels - ACTH stimulation test results.. seems to be she does have primary adrenal insufficiency.could be chronic.. may get benefit with Network Mgr evaluation - Subjective Interval history: Ms. Flowers is a 56 year old female hx of hypothyroid on cytomel, fibromyalgia, bipolar, migraine who presented to ER with acute b/l LE weakness. 2 days ago, she felt the early beginnings of onset of proximal LE weakness when she was lifting her grand kid. y/d, she had progressive weakness most notable at 8 pm - she attempted to stand up from the couch when she felt both of her legs giving out, leading to fall to the floor and mild head trauma. She denies any sensory deficits or back pain or prior trauma. She also denied any fecal or urinary incontinence. She stated she is feeling much better today. Still has some weakness in both legs. - Constitutional Vitals: Temp Pulse Resp BP Pulse Ox 97.6 F 92 16 111/72 98 01/27/17 15:17 01/27/17 15:17 01/27/17 15:17 01/27/17 15:17 01/27/17 15:17 General appearance: Present: A&O X 3, pleasant - Head Head exam: Present: atraumatic, normal inspection - Neck Neck exam general surgery: Present: supple - Respiratory Respiratory exam: Absent: rales, respiratory distress, rhonchi, wheezes - Cardiovascular Cardiovascular exam: Present: RRR, +S1, +S2. Absent: tachycardia - GI/Abdominal GI/Abdominal exam: Present: normal bowel sounds, soft. Absent: rebound, rigid, tenderness - Extremities Exam Extremities exam: Absent: calf tenderness, pedal edema, tenderness - Neurological Exam Neurological exam: Present: alert, oriented X3, no focal deficits. Absent: pronater drift, facial droop, speech deficit Additional comments: no sensory deficit in both legs.. motor strength still 4/5 - Psychiatric Psychiatric exam: Present: normal affect, normal mood - Skin Skin exam: Absent: rash Internal Medicine: Result - Labs CBC & Chem 7: 01/24/17 22:46 01/25/17 05:16 - ABG Interpretation ABG results: PT/INR, D-dimer PT 12.0 Seconds (9.4-12.1) 01/24/17 22:46 - Impressions Impressions Thoracic Spine MRI 01/26/17 11:58 IMPRESSION: At T7-8, a small central right disc protrusion results in complete effacement of the anterior subarachnoid space and anterior cord flattening. The posterior subarachnoid space is preserved. There is no overall spinal canal stenosis. Otherwise unremarkable examination. D/ / Huy Hart MD / Huy Hart MD Interpreting Provider: Huy Hart MD Foreign Body Localization X-Ray 01/27/17 11:30 IMPRESSION: No metallic foreign body in the orbits to prevent MRI. D/ / Ross Barrett MD / Ross Barrett MD Interpreting Provider: Ross Barrett MD Consult Discharge Plan - Plan Referrals: Mehul Darling MD [Primary Care Provider] -
[2017-01-27] MEDS: Folic Acid 1 MG TABLET PO SCH (18:58)
[2017-01-28 05:27] LABS: Basophils # 0.1 K/mcL (0.0-0.2); Basophils % 1.2 %; Eosinophils % 13.2 %; Hematocrit 36.1 % (35.3-44.9); Immature Granulocytes % 0.4 % (0-4); Lymphocytes # 2.2 K/mcL (0.6-4.6); Lymphocytes % 27.6 %; Mean Corpuscular HGB Conc 30.5 g/dL (31.6-35.5); Mean Corpuscular Hemoglobin 26.5 pg (28.0-33.3); Mean Platelet Volume 10.1 fL (9.4-12.4); Monocytes % 12.9 %; Neutrophils # 3.5 K/mcL (1.6-8.9); Platelet Count 310 K/mcL (140-400); Red Blood Count 4.15 M/mcL (3.82-4.97); Red Cell Distribution Width 13.2 % (11.5-14.5); Segmented Neutrophils % 44.7 %
[2017-01-28 05:29] LABS: BUN/Creatinine Ratio 22 (6-26); Blood Urea Nitrogen 18 mg/dL (7-20); Calcium 8.4 mg/dL (8.6-10.8); Carbon Dioxide 27 mEq/L (19-29); Chloride 108 mEq/L (98-109); Glucose 91 mg/dL (70-99); Magnesium 1.7 mg/dL (1.6-2.6); Osmolality,Calculated 293 (280-300); Potassium 4.3 mEq/L (3.5-4.5); Sodium 141 mEq/L (136-145); eGFR For African Americans > 60 (> 60); eGFR For Non-African Americans > 60 (> 60)
[2017-01-28] MEDS: Topiramate 100 MG TABLET PO SCH ×2 (10:19→20:47)
[2017-01-28] MEDS: Gabapentin 300 MG CAPSULE PO SCH ×3 (10:20→20:47)
[2017-01-28] MEDS: Folic Acid 1 MG TABLET PO SCH (10:20)
[2017-01-28] MEDS: BuPROPion SR (12 HR) 150 MG TABLET PO SCH ×2 (10:20→20:47)
[2017-01-28] MEDS: Aspirin Enteric Coated 325 MG Tablet PO SCH (10:20)
[2017-01-28] MEDS: ALPRAZolam 1 MG TABLET PO SCH ×3 (10:20→20:47)
[2017-01-28] MEDS: lamoTRIgine 100 MG TABLET PO SCH ×2 (10:27→20:47)
--- NOTE | 2017-01-28 17:00 | Internal Med Progress Note ---
Date of Encounter: 01/28/17 Time of Encounter: 16:57 - Assessment and plan (1) Weakness of both legs Current Visit: Yes Status: Acute Assessment and plan: Sudden onset Unclear etiology MRI of Brain - no acute infractions MRI of thoracic spine did show disc bulge at the level of T7-T8 causing effacement of subarachnoid sac and anterior cord flattening. However the posterior subarachnoid space is preserved not sure this is main reson for her transient b/l le weakness consulted ortho surgery Dr. Mosquera PT / OT preethi - recommended in pt rehab..pt wants to go home with home health services Reviewed her X ray of Lumbar spine - no acute changes Reviewed B12, Folic acid levels-- Slightly lower folic acid levels started her on folic acid supplements Orthopedic surgery consulted, recommendations appreciated. PT/OT recommended inpatient rehabilitation, patient would be open to this. We will have arranged in the a.m. based on insurance approval and patient preferences. (2) Anxiety Current Visit: No Status: Acute (3) Abnormal thyroid blood test Current Visit: Yes Status: Acute Assessment and plan: Reviewed thyroid functions tests.. 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 Does not look like any central pituitary / hypothalamus problem Reviewed her Cortsol levels - ACTH stimulation test results.. seems to be she does have primary adrenal insufficiency.could be chronic.. may get benefit with [employer] evaluation. (4) Migraine Current Visit: Yes Status: Acute Assessment and plan: resumed home meds Qualifiers: Migraine type: unspecified Status migrainosus presence: without status migrainosus Intractability: not intractable Qualified Code(s): G43.909 - Migraine, unspecified, not intractable, without status migrainosus (5) Functional paraparesis Current Visit: Yes Status: Acute Assessment and plan: see above (6) Adrenal insufficiency Current Visit: Yes Status: Acute Assessment and plan: Reviewed her Cortsol levels - ACTH stimulation test results.. seems to be she does have primary adrenal insufficiency.could be chronic.. may get benefit with [employer] evaluation - Subjective Interval history: Patient states weakness is improved. - Constitutional Vitals: Temp Pulse Resp BP Pulse Ox 97.9 F 97 16 98/61 94 01/28/17 15:49 01/28/17 15:49 01/28/17 15:49 01/28/17 15:49 01/28/17 15:49 General appearance: Present: A&O X 3, pleasant Exam: - Head Head exam: Present: atraumatic, normal inspection - Neck Neck exam general surgery: Present: supple - Respiratory Respiratory exam: Absent: rales, respiratory distress, rhonchi, wheezes - Cardiovascular Cardiovascular exam: Present: RRR, +S1, +S2. Absent: tachycardia - GI/Abdominal GI/Abdominal exam: Present: normal bowel sounds, soft. Absent: rebound, rigid, tenderness - Extremities Exam Extremities exam: Absent: calf tenderness, pedal edema, tenderness - Neurological Exam Neurological exam: Present: alert, oriented X3, no focal deficits. Absent: pronater drift, facial droop, speech deficit Additional comments: no sensory deficit in both legs.. motor strength still 4/5 - Psychiatric Psychiatric exam: Present: normal affect, normal mood - Skin Skin exam: Absent: rash Internal Medicine: Result - Labs CBC & Chem 7: 01/28/17 04:50 01/28/17 04:50 Labs: Short CBC 01/28/17 Range/Units 04:50 WBC 7.8 (4.3-11.1) K/mcL Hgb 11.0 L D (11.5-15.4) g/dL Hct 36.1 (35.3-44.9) % Plt Count 310 (140-400) K/mcL Neutrophils # 3.5 (1.6-8.9) K/mcL BMP 01/28/17 04:50 Sodium 141 Potassium 4.3 D Chloride 108 Carbon Dioxide 27 BUN 18 D Creatinine 0.82 Glucose 91 Calcium 8.4 L - ABG Interpretation ABG results: PT/INR, D-dimer PT 12.0 Seconds (9.4-12.1) 01/24/17 22:46 - Impressions Impressions Thoracic Spine MRI 01/26/17 11:58 IMPRESSION: At T7-8, a small central right disc protrusion results in complete effacement of the anterior subarachnoid space and anterior cord flattening. The posterior subarachnoid space is preserved. There is no overall spinal canal stenosis. Otherwise unremarkable examination. D/ / Huy Hart MD / Huy Hart MD Interpreting Provider: Huy Hart MD Consult Discharge Plan - Plan Referrals: Mehul Darling MD [Primary Care Provider] - 02/13/17 10:00 am
--- NOTE | 2017-01-28 22:32 | Electrocardiograph Report ---
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
[2017-01-29 04:47] LABS: Basophils # 0.1 K/mcL (0.0-0.2); Basophils % 1.3 %; Eosinophils # 1.3 K/mcL (0.0-0.6); Eosinophils % 15.2 %; Hematocrit 36.3 % (35.3-44.9); Hemoglobin 11.5 g/dL (11.5-15.4); Immature Granulocytes % 0.5 % (0-4); Lymphocytes # 2.4 K/mcL (0.6-4.6); Lymphocytes % 29.1 %; Mean Corpuscular HGB Conc 31.7 g/dL (31.6-35.5); Mean Corpuscular Hemoglobin 26.9 pg (28.0-33.3); Mean Corpuscular Volume 84.8 fL (83.0-100.0); Monocytes # 0.9 K/mcL (0.0-1.3); Monocytes % 11.1 %; Neutrophils # 3.5 K/mcL (1.6-8.9); Platelet Count 328 K/mcL (140-400); Red Blood Count 4.28 M/mcL (3.82-4.97); Red Cell Distribution Width 13.2 % (11.5-14.5); Segmented Neutrophils % 42.8 %
[2017-01-29 05:00] LABS: BUN/Creatinine Ratio 20 (6-26); Blood Urea Nitrogen 16 mg/dL (7-20); Calcium 8.3 mg/dL (8.6-10.8); Carbon Dioxide 24 mEq/L (19-29); Chloride 105 mEq/L (98-109); Glucose 98 mg/dL (70-99); Osmolality,Calculated 289 (280-300); Potassium 3.9 mEq/L (3.5-4.5); Sodium 139 mEq/L (136-145); eGFR For African Americans > 60 (> 60); eGFR For Non-African Americans > 60 (> 60)
[2017-01-29] MEDS: Gabapentin 300 MG CAPSULE PO SCH ×3 (08:29→21:05)
[2017-01-29] MEDS: lamoTRIgine 100 MG TABLET PO SCH ×2 (08:29→21:05)
[2017-01-29] MEDS: Aspirin Enteric Coated 325 MG Tablet PO SCH (08:29)
[2017-01-29] MEDS: BuPROPion SR (12 HR) 150 MG TABLET PO SCH ×2 (08:29→21:05)
[2017-01-29] MEDS: ALPRAZolam 1 MG TABLET PO SCH ×3 (08:30→21:05)
[2017-01-29] MEDS: Folic Acid 1 MG TABLET PO SCH (08:30)
[2017-01-29] MEDS: Topiramate 100 MG TABLET PO SCH ×2 (08:30→21:05)
[2017-01-29 08:35] LABS: ANA IgG by ELISA NONE DETECTED (None Detected)
--- NOTE | 2017-01-29 10:30 | Spinal Consult Note ---
Date of Encounter: 01/28/17 Time of Encounter: 14:30 Assessment and Plan (1) Thoracic stenosis Current Visit: Yes Status: Chronic She is lying comfortably in bed in no acute distress. Afebrile vital signs stable. She fires all upper and lower extremity motor groups with good strength. She has a negative straight leg raise. Her hips move symmetrically. She has no clonus. MRI of the thoracic spine reveals multilevel degenerative changes. There is a disc bulge at T7-8 resulting in mild to moderate stenosis. There is no other significant MRI abnormalities. Plan: The patient does not have a significant neurologic deficit and I see no role for immediate surgical intervention. She has seen Dr. Ferreira in pain management in the past. I suggest follow-up with Dr. Ferreira would regarding potential intervention will options for her pain. History of Present Illness Chief complaint: Back and right hip pain, weakness in legs HPI: Ms. Flowers is a 56 year old female Who complains of chronic back pain radiating into the right hip. She also has some difficulty with ambulation and weakness in the legs. We are asked to see regarding treatment of her radicular symptoms in her right hip and leg as well as concerns for weakness. She has been seen by neurology who does not recommend any immediate interventions. She denies any bowel bladder symptomatology. She denies any fevers or chills. Past Med Surg Social Fam HX - Past Medical History Medical history: cancer, migraine, thyroid disease, TIA Psychiatric history: anxiety, bipolar, depression, panic disorder - Past Surgical History Surgical History: appendectomy - Social History Smoking Status: Former smoker Smokeless Tobacco Status: No Alcohol use: none Drug use: none - Family History Mother Living Status: Still Living Hx Family Cardiac Disorders: No Hx Family Respiratory Disorders: No Hx Family Cancer: Yes (Uterine Cancer) Hx Family GI Disorders: No Hx Family Endocrine Disorder: No Hx Family Neuromuscular Disorders: No Hx Family Neurologic Disorders: No Hx Family HEENT Disorders: No Hx Family Autoimmune Disorders: No Father Living Status: Hx Family Cardiac Disorders: Yes (Enlarged heart) Hx Family Respiratory Disorders: Yes (COPD) Hx Family Cancer: No Hx Family GI Disorders: No Hx Family Endocrine Disorder: No Hx Family Neuromuscular Disorders: No Hx Family Neurologic Disorders: No Hx Family HEENT Disorders: No Hx Family Autoimmune Disorders: No Medications and Allergies ALPRAZolam [Xanax 1 MG Tablet] 2 mg PO TID PRN 03/19/15 [History] Duloxetine HCl [Cymbalta] 60 mg PO BID 03/19/15 [History] Gabapentin [Neurontin] 600 mg PO QID 03/19/15 [History] Liothyronine Sodium [Cytomel] 50 mcg PO DAILY 03/19/15 [History] Topiramate [Trokendi Xr] 200 mg PO TID 03/19/15 [History] BuPROPion SR (12 HR) [Wellbutrin SR] 200 mg PO BID 09/29/15 [History] lamoTRIgine [Lamictal] 200 mg PO BID 09/29/15 [History] Aspirin [Lo-Dose Aspirin EC] 81 mg PO DAILY 01/25/17 [History] 3 Allergy/AdvReac Type Severity Reaction Status Date / Time No Known Allergies Allergy Verified 01/24/17 21:47 Results - Labs Result Diagrams: 01/29/17 04:10 01/29/17 04:10 Labs: Abnormal lab results MCH 26.9 pg (28.0-33.3) L 01/29/17 04:10 Eosinophils # 1.3 K/mcL (0.0-0.6) H 01/29/17 04:10 ESR 35 mm/hr (0-15) H 01/26/17 12:07 POC Glucose 97 (58-89) H 01/24/17 22:00 Calcium 8.3 mg/dL (8.6-10.8) L 01/29/17 04:10 Lactate Dehydrogenase 157 Units/L (159-327) L 01/26/17 12:07 Albumin 2.7 g/dL (3.5-5.0) L 01/25/17 05:16 Albumin/Globulin Ratio 0.8 (1.1-2.2) L 01/25/17 05:16 Folate 6.3 ng/mL (7.0-31.4) L 01/25/17 16:46 TSH 0.009 mcIU/mL (0.350-4.840) L 01/24/17 22:46 Free T4 < 0.40 ng/dl (0.70-1.48) L 01/24/17 22:46 Thyroxine (T4) < 0.91 mcg/dL (4.87-11.72) L 01/24/17 22:46 Free T3 5.45 pg/mL (1.71-3.71) H 01/24/17 22:46 Total T3 3.09 ng/mL (0.58-1.59) H 01/24/17 22:46 Ur Leukocyte Esterase Moderate (Negative) H 01/24/17 23:35 Ur Culture Indicated? YES (NO) A 01/24/17 23:35 All other labs normal. Consult Discharge Plan - Plan Referrals: Mehul Darling MD [Primary Care Provider] - 02/13/17 10:00 am
--- NOTE | 2017-01-29 12:57 | Discharge Summary ---
Date of Encounter: 01/29/17 Time of Encounter: 12:53 - Discharge Diagnosis (1) Weakness of both legs Priority: Primary Status: Acute (2) Anxiety Priority: Secondary Status: Acute (3) Abnormal thyroid blood test Priority: Secondary Status: Acute (4) Migraine Priority: Secondary Status: Acute Qualifiers: Migraine type: unspecified Status migrainosus presence: without status migrainosus Intractability: not intractable Qualified Code(s): G43.909 - Migraine, unspecified, not intractable, without status migrainosus (5) Functional paraparesis Priority: Secondary Status: Acute (6) Adrenal insufficiency Priority: Secondary Status: Acute - Discharge Medications Home Medications: ALPRAZolam [Xanax 1 MG Tablet] 2 mg PO TID PRN 03/19/15 [History] Duloxetine HCl [Cymbalta] 60 mg PO BID 03/19/15 [History] Gabapentin [Neurontin] 600 mg PO QID 03/19/15 [History] Liothyronine Sodium [Cytomel] 50 mcg PO DAILY 03/19/15 [History] Topiramate [Trokendi Xr] 200 mg PO TID 03/19/15 [History] BuPROPion SR (12 HR) [Wellbutrin SR] 200 mg PO BID 09/29/15 [History] lamoTRIgine [Lamictal] 200 mg PO BID 09/29/15 [History] Aspirin [Lo-Dose Aspirin EC] 81 mg PO DAILY 01/25/17 [History] Aspirin Enteric Coated [Aspirin EC] 325 mg PO DAILY tablet. 01/29/17 [Rx] Folic Acid 1 mg PO DAILY tablet 01/29/17 [Rx] Allergies/Adverse Reactions: 3 Allergy/AdvReac Type Severity Reaction Status Date / Time No Known Allergies Allergy Verified 01/24/17 21:47 Date of admission: 01/29/17 08:33 Primary care physician: Mehul Darling MD - Patient Status Disposition: Transfer SNF Condition: Good Overall status at discharge: patient is progressing back to baseline - Discharge Instructions Follow Up With: Mehul Darling MD [Primary Care Provider] - 02/13/17 10:00 am Forms: ED Satisfaction Letter Hospital course: Ms. Flowers is a 56 year old female presented with acute bilateral lower extremity weakness. 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 She lives with her daughter and grand kids at home. One day prior to admission she fell after feeling sudden onset of weakness. She had progressive weakness throughout the evening and attempted stand up from the couch but felt her legs giving out. Slow to her falling on the floor and having mild head trauma. She denied any sensory deficits or back pain or prior trauma. A note reviewed 2 weeks prior to admission revealed patient had a history of intermittent hallucinations. Chart review was significant for history of pseudoseizures and also history of migraines. EKG showed patient to have sinus tachycardia no other abnormal findings. A CT of the head and brain showed no acute abnormality. A chest x- ray was negative. Patient was admitted for weakness. An MRI of the brain was done that showed no acute infarctions. PTOT evaluate a patient recommended inpatient rehabilitation. She had frequent neuro checks done. Thyroid tests were done showing a low TSH, low T4, high free T3, and a total T3. 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 FSH and LH levels were done which was an acceptable range for postmenopausal patient and did not look like she had any central pituitary or hypothalamic problems. She had ACTH stimulation and cortisol levels checked, it did seem as she may have has primary adrenal insufficiency which could be chronic. B12 and folic acid levels were checked, B12 was within normal limits. Folic acid was slightly lower and replaced. Neurology was consulted at this point. Patient did display rapid improvement without any specific treatment. She did still have residual weakness. It was noted the patient did have preserved deep tendon reflexes and had no sensory deficits. This ruled out Guillain-Eure syndrome. An MRI of the thoracic spine was done to rule out any lesion of the spinal cord, which did show disc bulge at T7-T8. Orthopedic surgery was consulted to evaluate patient and there was no significant neurological deficit appreciated once again. There was no need for immediate surgical intervention. It was noted that she has seen Dr. Ferreira with pain management in the past for which it was suggested that she follows up with them.. An outpatient follow-up should be done. From a neurological perspective no further testing was necessary. Patient was approved for ECF and she was discharged in stable condition to continue PT and OT. - Time Spent with Patient Total time spent providing and/or coordinating discharge services: - Constitutional Vitals: Temp Pulse Resp BP Pulse Ox 99.6 F 95 15 93/62 96 01/29/17 10:58 01/29/17 10:58 01/29/17 10:58 01/29/17 10:58 01/29/17 10:58 General appearance: Present: A&O X 3, pleasant Exam: - Head Head exam: Present: atraumatic, normal inspection - Neck Neck exam general surgery: Present: supple - Respiratory Respiratory exam: Absent: rales, respiratory distress, rhonchi, wheezes - Cardiovascular Cardiovascular exam: Present: RRR, +S1, +S2. Absent: tachycardia - GI/Abdominal GI/Abdominal exam: Present: normal bowel sounds, soft. Absent: rebound, rigid, tenderness - Extremities Exam Extremities exam: Absent: calf tenderness, pedal edema, tenderness - Neurological Exam Neurological exam: Present: alert, oriented X3, no focal deficits. Absent: pronater drift, facial droop, speech deficit Additional comments: no sensory deficit in both legs.. motor strength still 4/5 - Psychiatric Psychiatric exam: Present: normal affect, normal mood - Skin Skin exam: Absent: rash
--- NOTE | 2017-01-29 13:13 | Physician Discharge Referral ---
ExtendedCare Referral Info Institutional Level of Care: Skilled - Diagnosis (1) Weakness of both legs Priority: Primary Status: Acute (2) Anxiety Priority: Secondary Status: Acute (3) Abnormal thyroid blood test Priority: Secondary Status: Acute (4) Migraine Priority: Secondary Status: Acute (5) Functional paraparesis Priority: Secondary Status: Acute (6) Adrenal insufficiency Priority: Secondary Status: Acute - Transfer Medications Home Medications: ALPRAZolam [Xanax 1 MG Tablet] 2 mg PO TID PRN 03/19/15 [History] Duloxetine HCl [Cymbalta] 60 mg PO BID 03/19/15 [History] Gabapentin [Neurontin] 600 mg PO QID 03/19/15 [History] Liothyronine Sodium [Cytomel] 50 mcg PO DAILY 03/19/15 [History] Topiramate [Trokendi Xr] 200 mg PO TID 03/19/15 [History] BuPROPion SR (12 HR) [Wellbutrin SR] 200 mg PO BID 09/29/15 [History] lamoTRIgine [Lamictal] 200 mg PO BID 09/29/15 [History] Aspirin [Lo-Dose Aspirin EC] 81 mg PO DAILY 01/25/17 [History] Aspirin Enteric Coated [Aspirin EC] 325 mg PO DAILY tablet. 01/29/17 [Rx] Folic Acid 1 mg PO DAILY tablet 01/29/17 [Rx] Allergies/Adverse Reactions: 3 Allergy/AdvReac Type Severity Reaction Status Date / Time No Known Allergies Allergy Verified 01/24/17 21:47 - Respiratory Orders Smoking Cessation: Smoking cessation has been advised. For more information, call the [place] Tobacco Quit Line at 2-184-UOQK-NOW. - Ancillary Orders May use pressure relief devices daily prn, May consult with Dentist, Trip Motor Operator, Vice President Planning PRN - Advance Directives Code Status: Full Code - Mobility Orders Other (As per physical therapy) - Rehabiliation Orders Rehab Potential: Fair Rehab Orders: ROM Exercises, Evaluation for Physical Therapy, Evaluation for Occupational Therapy - Treatments Skin tear care topically daily PRN per policy - Diet Orders Regular CERTIFICATION: I certify that the transfer of the above named patient to an Extended Care Facility is necessary for the continuing treatment of the diagnosis listed. The above information is true and accurate reflection of patient's current condition. Confidential - Redisclosure prohibited without a patient's written consent.
[2017-01-30 05:15] LABS: Basophils # 0.1 K/mcL (0.0-0.2); Basophils % 1.2 %; Eosinophils # 1.2 K/mcL (0.0-0.6); Eosinophils % 12.6 %; Hemoglobin 11.4 g/dL (11.5-15.4); Lymphocytes # 2.2 K/mcL (0.6-4.6); Lymphocytes % 24.4 %; Mean Corpuscular HGB Conc 30.8 g/dL (31.6-35.5); Mean Corpuscular Hemoglobin 26.7 pg (28.0-33.3); Mean Corpuscular Volume 86.7 fL (83.0-100.0); Mean Platelet Volume 9.8 fL (9.4-12.4); Monocytes % 10.4 %; Neutrophils # 4.6 K/mcL (1.6-8.9); Platelet Count 367 K/mcL (140-400); Red Blood Count 4.27 M/mcL (3.82-4.97); Red Cell Distribution Width 13.3 % (11.5-14.5); Segmented Neutrophils % 50.4 %
[2017-01-30 05:28] LABS: BUN/Creatinine Ratio 21 (6-26); Blood Urea Nitrogen 18 mg/dL (7-20); Calcium 8.6 mg/dL (8.6-10.8); Carbon Dioxide 25 mEq/L (19-29); Chloride 103 mEq/L (98-109); Glucose 98 mg/dL (70-99); Osmolality,Calculated 290 (280-300); Potassium 4.2 mEq/L (3.5-4.5); Sodium 139 mEq/L (136-145); eGFR For African Americans > 60 (> 60); eGFR For Non-African Americans > 60 (> 60)
[2017-01-30 07:10] VITALS: BP 107/71
[2017-01-30] MEDS: Topiramate 100 MG TABLET PO SCH (08:30)
[2017-01-30] MEDS: lamoTRIgine 100 MG TABLET PO SCH (08:30)
[2017-01-30] MEDS: ALPRAZolam 1 MG TABLET PO SCH (08:30)
[2017-01-30] MEDS: Aspirin Enteric Coated 325 MG Tablet PO SCH (08:30)
[2017-01-30] MEDS: Gabapentin 300 MG CAPSULE PO SCH (08:30)
[2017-01-30] MEDS: Folic Acid 1 MG TABLET PO SCH (08:30)
[2017-01-30] MEDS: BuPROPion SR (12 HR) 150 MG TABLET PO SCH (08:33)
--- NOTE | 2017-01-30 09:34 | Event Note ---
Date of Encounter: 01/30/17 Time of Encounter: 09:33 patient seen and examined this AM. No acute events. VSS, physical exam unremarkable. Overall doing well. She was approved to [place] and will be discharged today in stable condition.
== END 2017-01-30 10:55 | DRG 948 ==
LOC: 3BNU 21:46 → EMEROO 21:46 → SUATTDRO 01-25 00:43 → 3BNU 01-25 01:17
PROVIDERS: ADMIT Internal Medicine Hematology & Oncology; ATTEND Student in an Organized Health Care Education/Training Program